=== PATIENT | female | born 1955 | race Caucasian/White ===

== ENCOUNTER 2018-11-21 10:26 | Emergency (ER) | payer OTHER, MEDICARE ==
[~2018-11-21] VITALS: Ht 162.6 cm; Wt 63.5 kg
[2018-11-21 10:26] VITALS: BP_SYST 119
[2018-11-21 12:08] VITALS: BP_SYST 119
== END 2018-11-21 12:08 | disposition home or self-care (01) ==
LOC: SED 10:26
DX: S52.591A Other fractures of lower end of right radius, initial encounter for closed fracture (principal); R03.0 Elevated blood-pressure reading, without diagnosis of hypertension; Z88.0 Allergy status to penicillin; W01.0XXA Fall on same level from slipping, tripping and stumbling without subsequent striking against object, initial encounter; Y93.89 Activity, other specified; Y92.89 Other specified places as the place of occurrence of the external cause; Y99.8 Other external cause status
CPT/HCPCS: 99283